=== PATIENT | male | born 1940 | race Hispanic/Latino ===

== ENCOUNTER 2018-08-21 16:24 | Inpatient (IN) | payer OTHER, MEDICARE ==
[~2018-08-21] VITALS: Ht 170.2 cm; Wt 97.5 kg
[~2018-08-21 16:24] MED LIST: CRESTOR10 MG PO; LISINOPRIL30 MG PO; LOVAZA1 GM PO; METFORMIN HCL1000 MG PO; METOPROLOL SUCC25 MG PO; TAMSULOSIN HCL0.4 MG PO
[2018-08-21] MEDS ORDERED: MEROPENEM 500MG 500 MG in SODIUM CHLORIDE 0.9% 50ML 50 ML IV SCH (17:00)
[2018-08-21] MEDS ORDERED: DEXTROSE 50% SYRINGE 50 ML IV PRN (17:15)
[2018-08-21 17:21] LABS: BASOPHILS % 0.4 % (0.0-1.0); EOSINOPHILS # (AUTO) 0.2 (0.0-0.4); HEMATOCRIT 36.3 % (38.2-49.6); HEMOGLOBIN 12.3 g/dL (14.0-18.0); LYMPHOCYTES % 36.1 % (18.0-39.1); MEAN CORPUSCULAR HEMOGLOBIN 29.6 pg (28-32); MEAN CORPUSCULAR HGB CONC 33.9 g/dL (31-35); MEAN CORPUSCULAR VOLUME 87.5 fL (81-99); MONOCYTES # (AUTO) 0.5 (0.2-0.8); MONOCYTES % 8.1 % (4.4-11.3); NEUTROPHILS # (AUTO) 2.9 (2.1-6.9); PLATELET COUNT 115 x10e3/uL (140-360); RED BLOOD COUNT 4.15 x10e6/uL (4.3-5.7); RED CELL DISTRIBUTION WIDTH 13.1 % (11.7-14.4)
[2018-08-21] MEDS: MEROPENEM 500MG/ NS 50ML 50 ML IV SCH (17:34)
[2018-08-21 17:44] LABS: ALANINE AMINOTRANSFERASE 25 IU/L (0-55); ALBUMIN 3.6 g/dL (3.5-5.0); ALBUMIN/GLOBULIN RATIO 0.9 (0.8-2.0); ALKALINE PHOSPHATASE 68 IU/L (40-150); ANION GAP 12.4 mmol/L (8-16); BLOOD UREA NITROGEN 13 mg/dL (7-26); BUN/CREATININE RATIO 11 (6-25); CALCIUM 10.1 mg/dL (8.4-10.2); CARBON DIOXIDE 24 mmol/L (22-29); CHLORIDE 109 mmol/L (98-107); CREATININE, SERUM 1.17 mg/dL (0.72-1.25); EST GLOMERULAR FILTRATION RATE > 60 ML/MIN (60-); GLUCOSE 102 mg/dL (74-118); POTASSIUM 4.4 mmol/L (3.5-5.1); SODIUM 141 mmol/L (136-145)
--- NOTE | 2018-08-21 18:39 | NUR ---
This 77y/o Wolof speaking male arrived to the unit via wheelchair. The pt. was made comfortable and blood glucose was monitored with result of 85. The pt. was provided a sandwich and milk as the pt. reports he had no dinner. There are iv caths in both ac spaces 18g. There is a family member at the bedside. The pt. presents with a diagnosis of UTI. Blood cultures have been done with results pending.
[2018-08-21 19:30] VITALS: BP 149/78
--- NOTE | 2018-08-21 19:30 | NUR ---
Completed nursing assessment. Pt Kyrgyz Speaking. Language Line called. Pt alert to name, knows he's at the hospital for urinating a lot. Dx: UTI. Denies pain or discomfort at this time. Skin warm and intact. Last BM 08/21. Oriented to room. Call galvez within reach. Bed low and locked. Will continue to monitor.
[2018-08-21 20:00] VITALS: BP 158/79
[2018-08-21 20:13] VITALS: BP 158/79
[2018-08-21] MEDS: INSULIN REGULAR, HUMAN 100 UNIT/1 ML 3ML VIAL SQ SCH (20:32)
[2018-08-21] MEDS ORDERED: DOXAZOSIN MESYLA2 MG PO (20:59)
[2018-08-21] MEDS ORDERED: VESICARE5 MG PO (20:59)
[2018-08-22] VITALS (8 sets, daily range): BP systolic 146–177; BP diastolic 66–81
[2018-08-22] MEDS ORDERED: SODIUM CHLORIDE 0.9% 250ML 250 ML ONE (05:07)
[2018-08-22] MEDS: MEROPENEM 500MG/ NS 50ML 50 ML IV SCH ×2 (05:16→17:42)
--- NOTE | 2018-08-22 07:15 | NUR ---
PATIENT IN BED RESTING WITH NOS/S OF DISTRESS. DENIED PAIN AT THIS TIME. BED IN LOWER POSITION, CALL LIGHT AT REACH. FAMILY AT BED SIDE.
[2018-08-22] MEDS: INSULIN REGULAR, HUMAN 100 UNIT/1 ML 3ML VIAL SQ SCH ×4 (07:30→20:36)
[2018-08-22] MEDS: LISINOPRIL 20 MG TAB PO SCH (11:18)
[2018-08-22] MEDS: METFORMIN HCL 850 MG TAB PO SCH ×2 (11:19→17:42)
[2018-08-22] MEDS: DOXAZOSIN MESYLATE 2 MG TAB PO SCH (11:19)
--- NOTE | 2018-08-22 11:45 | NUR ---
MD IN TO SEE PATIENT, HOME MEDICATIONS RENEWED A. IN BED RESTING WITH NO DISTRESS. CALL LIGHT AT REACH.
--- NOTE | 2018-08-22 15:59 | NUR ---
ORDERS FOR HOME HEALTH FOR [facility] 1GM IV Q 12 HRS X 10 DAYS CHOICE LETTER SIGNED BY [facility] (IN [facility]WORK FOR [place] [facility]) [phone] NADINE SPOKE WITH BRIA AT [facility] [phone] FAXED CLINICALS TO [phone]; CONFIRMATION REC'D HOME HEALTH AND IV ABX TO BE ARRANGED BY [facility] AFTER ARRANGEMENTS MADE
--- NOTE | 2018-08-22 16:30 | NUR ---
CONSENT FOR PICC LINE SIGNED, RADIOLOGY NOTIFIED. PATIENT IN BED TALKING TO FAMILY MEMBERS VISITING. CALL LIGHT AT REACH.
--- NOTE | 2018-08-22 19:00 | NUR ---
Completed bedside nursing report with morning nurse. Pt alert and orient to name. Slovenian Speaking. Lying in bed HOB 45 degrees. Denies pain at this time. Family at bedside. Call galvez within reach. Will continue to monitor.
--- NOTE | 2018-08-22 19:58 | Consultation ---
DATE OF CONSULTATION: REASON FOR CONSULTATION: UTI with multidrug resistant. HISTORY OF PRESENT ILLNESS: This patient who apparently has been followed by Dr. Irving Reyes, urologist as an outpatient. Urine culture was done recently showed he had a multidrug resistant pathogen. The patient has been having fever, chills, incontinence. The patient does have history of UTI, history of benign prostatic hypertrophy, hypertension, diabetes mellitus, neuropathy, hyperlipidemia. PAST SURGICAL HISTORY: Denies. ALLERGIES: NKA. SOCIAL HISTORY: There is no smoking, drug abuse, or alcohol abuse. He used to smoke, but he quit in 2011. REVIEW OF SYSTEMS: GENERAL: At the present time, the patient is lying in bed, comfortable. HEENT: There is no headache, visual changes, or hearing changes. GI: There is no nausea, no vomiting, no diarrhea. CARDIAC: There is no arrhythmia. NEUROLOGIC: No seizure activity. SKIN: There are no other rashes. Apparently, he had fever before he came here. The patient denies that he has continued to have fever. The patient was admitted. Blood cultures obtained. LABORATORY DATA: White count is 5.6, hemoglobin 12. His sodium 141, potassium 4.4, creatinine 1.17. He was started on metformin, Cardura, Prinivil, meropenem. His laboratory data reviewed. White count is 5.65, hemoglobin 12.3, his platelets 115. I do not have cultures here, but according to Dr. Irving Reyes, he had grew a bacteria, which was resistant, sensitive only to meropenem. PHYSICAL EXAMINATION: GENERAL: He is currently alert, oriented, does not seem to be in acute distress. VITAL SIGNS: Stable. Currently afebrile. HEENT: He is not icteric. NECK: Supple. CHEST: Clear. HEART: S1, S2. No S3, S4, or murmur. ABDOMEN: Soft. Bowel sounds present. No tenderness. EXTREMITIES: No edema. IMPRESSION: Urinary tract infection with multidrug resistant pathogen. We will get a copy of Dr. Irving Reyes's notes. PICC line is inserted. Agree with meropenem as ordered 500 IV q.8. Further recommendations to follow. The patient can be discharged home once IV antibiotics are arranged. MD JALYN Cordova/[place] /[id number]
[2018-08-22] MEDS ORDERED: SIMVASTATIN 20 MG TAB PO SCH (21:00)
--- NOTE | 2018-08-22 21:36 | Diagnostic Imaging Report ---
A single frontal view of the chest. HISTORY: UTI, PICC line placement COMPARISON: None available. DISCUSSION: Portable technique, limits sensitivity of the exam. Soft tissue attenuation partially limits sensitivity of the exam. Tubes/Lines: Right upper extremity PICC line, the tip projects at the region of the midsuperior vena cava.. Lungs and pleura: Low lung volumes result in bibasilar vascular crowding, accentuation of the pulmonary interstitial markings, central pulmonary vasculature, and the cardiac silhouette. Allowing for these limitations, the findings are as follows: Left basilar atelectasis. Confluent opacity partially obscures evaluation of the left lung base, this may be secondary to the soft tissue attenuation or a small effusion. Heart and mediastinum: The cardiac silhouette appears at the upper limits of normal. Bones and soft tissues: Appear unremarkable, given this limited exam. IMPRESSION: 1. Status post placement of a right upper PICC line. 2. Left basilar atelectasis with the possibility of a small pleural effusion. Recommend short term follow up routine PA and lateral chest radiographs, in 6 to 8 weeks, to evaluate for resolution. Signed by: Dr. Justin Godwin D.O., M.M.M. on 08/22/2018 9:33 PM
[2018-08-23] VITALS: BP 150/74
[2018-08-23 04:00] VITALS: BP 153/64
[2018-08-23] MEDS: MEROPENEM 500MG/ NS 50ML 50 ML IV SCH ×2 (04:44→17:23)
[2018-08-23 07:10] VITALS: BP 147/68
--- NOTE | 2018-08-23 07:12 | NUR ---
PATIENT IN BED RESTING WITH EYES CLOSED, NO DISTRESS NOTED. BED IN LOWER POSITION AND LOCKED. CALL LIGHT AT REACH.
[2018-08-23] MEDS: INSULIN REGULAR, HUMAN 100 UNIT/1 ML 3ML VIAL SQ SCH ×3 (07:30→16:30)
[2018-08-23 07:45] VITALS: BP 147/68
[2018-08-23] MEDS: METFORMIN HCL 850 MG TAB PO SCH ×2 (08:33→17:23)
[2018-08-23] MEDS ORDERED: SOLIFENACIN SUCCINATE 5 MG TAB PO SCH (09:00)
[2018-08-23] MEDS ORDERED: METOPROLOL SUCCINATE 25 MG TAB XL PO SCH (09:00)
[2018-08-23] MEDS: LISINOPRIL 20 MG TAB PO SCH (09:07)
[2018-08-23] MEDS: DOXAZOSIN MESYLATE 2 MG TAB PO SCH (09:07)
[2018-08-23 11:09] VITALS: BP 154/67
--- NOTE | 2018-08-23 11:24 | NUR ---
HOME IV ANTIBIOTIC APPROVED, AWAITING TO SETTING PER ROBOT PROGRAMMER. PATIENT TO RECEIVE THE EVENING DOSE OF ANTIBIOTIC BEFORE DISCHARGE.
[2018-08-23 15:17] VITALS: BP 158/69
--- NOTE | 2018-08-23 15:22 | Discharge Summary ---
CONSULTANTS: 1. Dr. Tierra Lawler. 2. Dr. Irving Reyes. FINAL DIAGNOSES: 1. Complicated urinary tract infection associated with ESBL only sensitive to meropenem. 2. Baseline enlarged prostate, urinary incontinent prostatitis. SUMMARY: The patient is a 77-year-old male, failed outpatient treatment for prostatitis and urinary tract infection. Urine culture grew out to be ESBL, the patient is only sensitive to meropenem. The patient admitted to the hospital. He started on meropenem. The patient is now arranged for meropenem for approximately 10 days. Arrangement has been made. The patient was discharged home today. He will continue with meropenem at home. Arrangement for home health. The patient to follow up with Dr. Irving Reyes and Dr. Lawler as an outpatient for management of his IV antibiotics. The patient has right upper extremity PICC line. MD DARREN Robles/[place] /[id number]
--- NOTE | 2018-08-23 15:34 | NUR ---
PATIENT OUT OF BED TO CHAIR TALKING TO FAMILY MEMBER VISITING. CALL LIGHT AT REACH.
--- NOTE | 2018-08-23 16:04 | NUR ---
SPOKE WITH BRIA AT [facility] [phone] PT APPROVED THRU INSURANCE FOR IV ABX THEY HAVE ARRANGED [facility] TO FOLLOW PT PICC LINE CONFIRMATION FAXED TO BRIA AND CONFIRMATION REC'D PLAN DC HOME AFTER 5 PM ABX DOSE TODAY
--- NOTE | 2018-08-23 18:36 | NUR ---
PATIENT DISCHARGED HOME. DISCHARGE INSTRUCTIONS, PRESCRIPTION, AND FOLLOW UP GIVEN TO PATIENT AND DAUGHTER, THEY VERBALIZED UNDERSTANDING. RIGHT UPPER ARM PICC LINE INTACT AND PATENT. ALL PERSONAL ITEMS TAKEN WITH PATIENT. REFUSED WHEEL CHAIR, BUT WAS ACCOMPANIED BY HOSPITAL STAFF TO FRONT LOBBY IN STABLE CONDITION.
== END 2018-08-23 18:36 | disposition home or self-care (01) | DRG 690 ==
LOC: EEVIPCON 16:24 → ER 16:24 → ERHOLD 17:10 → MED/SURG3 18:28
PROVIDERS: ADMIT Internal Medicine; ATTEND Internal Medicine
PROC: 02HV33Z Insertion of Infusion Device into Superior Vena Cava, Percutaneous Approach (ICD-10-PCS; principal; 2018-08-22)
DX: N39.0 Urinary tract infection, site not specified (principal); B96.20 Unspecified Escherichia coli [E. coli] as the cause of diseases classified elsewhere; Z16.12 Extended spectrum beta lactamase (ESBL) resistance; N40.1 Benign prostatic hyperplasia with lower urinary tract symptoms; N39.498 Other specified urinary incontinence; N41.9 Inflammatory disease of prostate, unspecified
CPT/HCPCS: 36415; 36569; 71045; 80053; 82948; 85025; 87040; 99284; J7050